=== PATIENT | female | born 1950 | race Caucasian/White ===

== ENCOUNTER 2023-10-10 08:55 | Outpatient (CLI) | payer MEDICARE | END 2023-10-10 08:56 | disposition home or self-care (01) | LOC: CSHRAD 08:55 | PROVIDERS: ATTEND Orthopaedic Surgery | DX: M47.26 Other spondylosis with radiculopathy, lumbar region (principal); M41.86 Other forms of scoliosis, lumbar region | CPT/HCPCS: 72131; 72148 ==